=== PATIENT | female | born 1960 | race Hispanic/Latino ===

== ENCOUNTER 2024-12-15 08:26 | Outpatient (CLI) | payer OTHER, SELFPAY | END 2024-12-15 08:27 | disposition home or self-care (01) | LOC: SCSBT 08:26 | PROVIDERS: ATTEND Internal Medicine Rheumatology | DX: M81.0 Age-related osteoporosis without current pathological fracture (principal); M85.89 Other specified disorders of bone density and structure, multiple sites | CPT/HCPCS: 77080 ==